=== PATIENT | female | born 1945 | race Two or more races ===

== ENCOUNTER 2019-11-20 15:30 | Inpatient (IN) | payer OTHER ==
[~2019-11-20] VITALS: Ht 162.6 cm; Wt 64.4 kg
[2019-11-23] MEDS ORDERED: ATORVASTATIN CA10 MG PO (14:37)
[2019-11-23] MEDS ORDERED: REMERON15 MG PO ×2 (14:37→14:55)
[2019-11-23] MEDS ORDERED: GLIMEPIRIDE2 M1 PO (14:38)
[2019-11-23] MEDS ORDERED: AVAPRO150 MG PO ×2 (14:38→14:55)
[2019-11-23] MEDS ORDERED: BETAXOLOL HCL10 MG PO ×2 (14:39→14:55)
[2019-11-23] MEDS ORDERED: LANTUS ×2 (14:40→14:58)
[2019-11-23] MEDS ORDERED: NASAL MIST126 ML (14:40)
[2019-11-23] MEDS ORDERED: GLIMEPIRIDE2 MG (14:56)
[2019-11-23] MEDS ORDERED: LIPITOR PO (14:56)
[2019-12-01] MEDS ORDERED: NEURONTIN300 MG PO (08:05)
[2019-12-01] MEDS ORDERED: ACETAMINOPHEN500 M2 PO (08:05)
[2019-12-01] MEDS ORDERED: INTESTINEX680 M1 PO (08:05)
[2019-12-01] MEDS ORDERED: PRILOSEC OTC20 MG PO (08:05)
== END 2019-12-01 09:31 | disposition home or self-care (01) | DRG 331 ==
LOC: EDUNIT# 11-23 12:45 → SURG 11-23 12:45 → SURH 11-28 06:25 → O/R 11-28 06:25 → SURG 11-28 11:15 → SURH 11-28 14:26
PROVIDERS: ADMIT Surgery
PROC: 07TB4ZZ Resection of Mesenteric Lymphatic, Percutaneous Endoscopic Approach (ICD-10-PCS; 2019-11-28)
PROC: 0DJD8ZZ Inspection of Lower Intestinal Tract, Via Natural or Artificial Opening Endoscopic (ICD-10-PCS; 2019-11-28)
PROC: 0DTN4ZZ Resection of Sigmoid Colon, Percutaneous Endoscopic Approach (ICD-10-PCS; principal; 2019-11-28 11:15)
DX: C18.7 Malignant neoplasm of sigmoid colon (principal); R59.0 Localized enlarged lymph nodes

== ENCOUNTER 2019-11-20 16:05 | Outpatient (CLI) | payer OTHER | END 2019-11-20 16:14 | disposition home or self-care (01) | LOC: RAD 16:05 | DX: C18.7 Malignant neoplasm of sigmoid colon (principal); R59.0 Localized enlarged lymph nodes; K62.5 Hemorrhage of anus and rectum; R10.84 Generalized abdominal pain ==

== ENCOUNTER 2020-12-02 07:36 | Day surgery (SDC) | payer OTHER ==
[~2020-12-02 07:36] MED LIST: ACETAMINOPHEN500 M2 PO; ATORVASTATIN CA10 MG PO; AVAPRO150 MG PO; BETAXOLOL HCL10 MG PO; GLIMEPIRIDE2 M1 PO; GLIMEPIRIDE2 MG; INTESTINEX680 M1 PO; LANTUS; LIPITOR PO; NASAL MIST126 ML; NEURONTIN300 MG PO; PRILOSEC OTC20 MG PO; REMERON15 MG PO
== END 2020-12-02 12:20 | disposition home or self-care (01) ==
LOC: AMB-ENDOS 07:36
PROVIDERS: ATTEND Surgery
DX: K62.89 Other specified diseases of anus and rectum (principal); Z20.822 Contact with and (suspected) exposure to COVID-19